=== PATIENT | female | born 1990 | race Caucasian/White ===

== ENCOUNTER → 2016-09-14 | Outpatient (CLI) | payer BC ==
--- NOTE | 2016-09-14 10:15 | US ---
EXAMINATION TYPE: US abdomen complete DATE OF EXAM: 09/14/2016 9:59 AM COMPARISON: NONE CLINICAL HISTORY: [id number] ABD PAIN. Intermittent nausea EXAM MEASUREMENTS: Liver Length: 13.2 cm Gallbladder Wall: 0.3 cm CBD: 0.4 cm Spleen: 9.8 cm Right Kidney: 10.7 x 4.7 x 4.6 cm Left Kidney: 10.9 x 4.6 x 5.3 cm Findings: Pancreas: Visualized portions within normal limits.. Liver: wnl Gallbladder: no evidence of stones Evidence for sonographic Costello's sign: No CBD: wnl Spleen: appears wnl Right Kidney: no evidence of hydronephrosis or mass Left Kidney: no evidence of hydronephrosis or mass Upper IVC: wnl Abd Aorta: wnl The liver is homogenous. The intrahepatic portion of the IVC and proximal abdominal aorta are within normal limits. There is no evidence of cholelithiasis. Common bile duct is unremarkable. The visu alized portions of the pancreas are homogenous. The spleen is unremarkable. Kidneys are symmetric a nd free of hydronephrosis. No renal lesions are seen. IMPRESSION: 1. No acute process.
== END | disposition home or self-care (01) ==
LOC: RADUSWWP 09:31
PROVIDERS: ATTEND Internal Medicine
DX: R10.84 Generalized abdominal pain (principal)
CPT/HCPCS: 76700